=== PATIENT | male | born 1940 | race Hispanic/Latino ===

== ENCOUNTER → 2019-10-02 | Outpatient (CLI) | payer OTHER ==
[~2019-10-02] MED LIST: AMLO10TA7 PO; ATOR40TA71 PO; CARV25TA PO; CEPH500T PO; LEVO500T2 PO; LOSA100T58 PO; OMEGA RED PO; ROSU20TA31 PO
== END | disposition home or self-care (01) ==
LOC: RAH 09:44
PROVIDERS: ATTEND Internal Medicine
DX: M17.0 Bilateral primary osteoarthritis of knee (principal); M79.641 Pain in right hand
CPT/HCPCS: 73130; 73562

== ENCOUNTER 2019-10-10 14:32 | Inpatient (IN) | payer OTHER ==
[~2019-10-10] VITALS: Ht 172.7 cm; Wt 92.6 kg
[2019-10-10] MEDS: SODIUM CHLORIDE 0.9% 1000ML 1,000 ML IV SCH
[~2019-10-10 14:32] MED LIST changes: +AMLO-258 PO; -AMLO10TA7 PO; -CEPH500T PO; -LEVO500T2 PO; -ROSU20TA31 PO
[2019-10-10] MEDS ORDERED: ACETAMINOPHEN EXTRA STRENGTH 500 MG TABLET ONE (15:09)
[2019-10-10 15:36] LABS: BASOPHILS % (AUTO) 0.2 % (0.0-5.0); HEMATOCRIT 37.3 % (42-54); MEAN CORPUSCULAR HEMOGLOBIN 30.7 pg (27.0-33.0); MEAN CORPUSCULAR HGB CONC 34.9 g/dL (32.0-36.0); MEAN CORPUSCULAR VOLUME 88.2 fL (79-99); MONOCYTES % (AUTO) 7.9 % (3.0-13.0); PLATELET COUNT (AUTO) 146 K/uL (130-400); RED BLOOD CELL COUNT(AUTO) 4.23 MIL/uL (4.50-6.20); RED CELL DISTRIBUTION WIDTH 12.6 % (11.0-15.5); WHITE BLOOD COUNT (AUTO) 23.7 K/uL (4.8-10.8)
[2019-10-10 15:42] LABS: INR 1.26 (0.85-1.15); PARTIAL THROMBOPLASTIN TIME 32.7 SEC (26.3-35.5); PROTHROMBIN TIME 13.5 SEC (9.6-11.6)
[2019-10-10 15:43] LABS: CARBON DIOXIDE 26 mmol/L (21-32); CHLORIDE 100 mmol/L (101-111); CREATININE 1.7 mg/dL (0.5-1.5); GLOMERULAR FILTR. RATE CALC 42 mL/min (>60); GLUCOSE,RANDOM 165 mg/dL (70-105); POTASSIUM 3.5 mmol/L (3.5-5.1); SODIUM SERUM 135 mmol/L (136-145); UREA NITROGEN, BLOOD 16 mg/dL (7-18)
[2019-10-10 15:54] LABS: ALANINE AMINOTRANSFERASE 12 U/L (12-78); ALBUMIN 3.5 g/dL (3.5-5.0); ASPARTATE AMINOTRANSFERASE 7 U/L (10-37); BILIRUBIN,TOTAL 0.8 mg/dL (0.2-1.0); CREATINE KINASE, TOTAL 39 U/L (21-232); MYOGLOBIN 118 ng/mL (10-92); TOTAL PROTEIN, SERUM 7.3 g/dL (6.0-8.3); TROPONIN I < 0.04 ng/mL (0.00-0.06)
[2019-10-10] MEDS ORDERED: ZOSYN 3.375GM+NS 50ML 50 ML IV ONE (16:49)
[2019-10-10] MEDS ORDERED: SODIUM CHLORIDE 0.9% 1000ML 2,000 ML IV ONE (16:49)
[2019-10-10] MEDS ORDERED: VANCOMYCIN 1.5 GM in SODIUM CHLORIDE 0.9% 250 ML IV SCH (18:00)
[2019-10-10 18:43] LABS: APPEARANCE,URINE Cloudy (CLEAR); BILIRUBIN,URINE Negative (NEGATIVE); COLOR,URINE Yellow (YELLOW); GLUCOSE, URINE (UA) Negative (NEGATIVE); KETONES,URINE Negative (NEGATIVE); LEUKOCYTE ESTERASE ,URINE Moderate (NEGATIVE); NITRATE,URINE Negative (NEGATIVE); OCCULT BLOOD,URINE Negative (NEGATIVE); PH,URINE 5.5 (5.0-8.0); PROTEIN,URINE POS 2+ mg/dL (NEGATIVE)
[2019-10-10 18:53] LABS: RBC,URINE 0-1 /HPF (0-1)
[2019-10-10 18:54] LABS: BACTERIA,URINE Few /HPF (None Seen); MUCUS,URINE Few LPF (None Seen); SQUAMOUS EPITHELIAL CELL,UR Few /HPF (0-2)
[2019-10-10] MEDS ORDERED: ACETAMINOPHEN 325 MG TAB PO PRN ×2 (20:45)
[2019-10-10] MEDS ORDERED: ONDANSETRON HCL 4 MG/2 ML VIAL IV PRN (20:45)
[2019-10-10] MEDS ORDERED: HYDRALAZINE HCL 20 MG/ML VIAL IV PRN (20:45)
[2019-10-10] MEDS ORDERED: MORPHINE SULFATE 2 MG/ML 1ML SYG IV PRN (20:45)
[2019-10-10] MEDS ORDERED: LACTULOSE 20 GM/30 ML UDCUP PO PRN (20:45)
[2019-10-10] MEDS: ZOSYN 3.375GM+NS 50ML 50 ML IV SCH (21:00)
[2019-10-10 21:02] LABS: HEMOGLOBIN A1C 6.5 % (4.0-6.0)
[2019-10-10 21:55] LABS: CHOLESTEROL 60 mg/dL (<200); HDL CHOLESTEROL 45 mg/dL (29-71); LDL DIRECT 25 mg/dL (0-99); TRIGLYCERIDES 53 mg/dL (30-200)
[2019-10-10 23:17] VITALS: BP 152/75
--- NOTE | 2019-10-11 | NUR ---
Patient a/ox3. denies chest pain or sob. Mild weakness to BLE with ambulation. Patient to use urinal at bedside. Bruise to R eyebrow post syncopal episode. Denies dizziness at this time. will continue to monitor.
[2019-10-11 03:00] VITALS: BP 144/74
[2019-10-11] MEDS: ZOSYN 3.375GM+NS 50ML 50 ML IV SCH ×3 (04:28→20:34)
[2019-10-11 04:33] LABS: BASOPHILS % (AUTO) 0.2 % (0.0-5.0); EOSINOPHILS % (AUTO) 0.1 % (0.0-8.0); HEMATOCRIT 34.4 % (42-54); LYMPHOCYTES % (AUTO) 4.3 % (21.0-51.0); MEAN CORPUSCULAR HGB CONC 34.9 g/dL (32.0-36.0); MEAN CORPUSCULAR VOLUME 88.9 fL (79-99); MONOCYTES % (AUTO) 6.8 % (3.0-13.0); NEUTROPHILS % (AUTO) 87.8 % (40.0-77.0); PLATELET COUNT (AUTO) 130 K/uL (130-400); RED BLOOD CELL COUNT(AUTO) 3.87 MIL/uL (4.50-6.20); RED CELL DISTRIBUTION WIDTH 12.6 % (11.0-15.5); WHITE BLOOD COUNT (AUTO) 21.2 K/uL (4.8-10.8)
[2019-10-11 04:44] LABS: CREATININE 1.4 mg/dL (0.5-1.5); POTASSIUM 3.3 mmol/L (3.5-5.1)
[2019-10-11] MEDS: INSULIN HUMULIN R 100 UNIT/ML 3ML SQ SCH ×3 (05:13→20:34)
--- NOTE | 2019-10-11 05:52 | NUR ---
Informed NET MAKER ERIKA Morillo about patient's K+ level. Per ERIKA start on electrolyte protocol.
[2019-10-11] MEDS ORDERED: POTASSIUM CHLORIDE 20MEQ/100ML 100 ML IV PRN (06:00)
[2019-10-11] MEDS ORDERED: LIDOCAINE HCL-MPF 1% 2ML VIAL IV PRN (06:00)
[2019-10-11] MEDS: POTASSIUM CHLORIDE 10% ELIXIR 20 MEQ/15 ML UDCUP PO PRN ×2 (06:24→15:35)
--- NOTE | 2019-10-11 07:35 | NUR ---
ASSESSMENT ENCOUNTERED PT A&OX3, CALM COOPERATIVE AND DOES NOT APPEAR TO BE IN ANY DISTRESS NOR ANY NEURO DEFICITS PRESENT. PT DENIES PAIN, SOB, NAUSEA. PT DOES HAVE SOME BRUISING OVER RIGHT EYE DUE TO A FALL AT HOME. PT IS ABLE TO TOLERATE FOODS, FLUIDS AND MEDICATION WITH NO THROAT CLEARING OR COUGH. CALL LIGHT WITHIN REACH.
[2019-10-11] MEDS: FAMOTIDINE 20MG TAB 20 MG TAB PO SCH (07:54)
[2019-10-11 08:09] VITALS: BP 116/56
[2019-10-11 11:42] VITALS: BP 120/60
--- NOTE | 2019-10-11 15:23 | NUR ---
cm note met with patient and states resides athome with spouse, independent with adls and self care. no dme. [place] can assist as needed. Addendum: 10/11/19 at 1525 by MICH BUTT CM Amended: Links added.
[2019-10-11] MEDS: SODIUM CHLORIDE 0.9% 1000ML 1,000 ML IV SCH (15:27)
[2019-10-11] MEDS: POTASSIUM CHLORIDE 20 MEQ ERTAB PO PRN (15:34)
[2019-10-11 16:00] VITALS: BP 124/69
[2019-10-11 19:15] VITALS: BP 122/66
[2019-10-11 23:18] VITALS: BP 133/75
[2019-10-12] MEDS: SODIUM CHLORIDE 0.9% 1000ML 1,000 ML IV SCH ×2 (01:02→12:31)
[2019-10-12 03:29] VITALS: BP 128/67
[2019-10-12] MEDS: ZOSYN 3.375GM+NS 50ML 50 ML IV SCH ×3 (05:24→20:51)
[2019-10-12 05:27] LABS: BASOPHILS % (AUTO) 0.3 % (0.0-5.0); EOSINOPHILS % (AUTO) 0.5 % (0.0-8.0); HEMATOCRIT 34.2 % (42-54); LYMPHOCYTES % (AUTO) 7.5 % (21.0-51.0); MEAN CORPUSCULAR HEMOGLOBIN 30.2 pg (27.0-33.0); MEAN CORPUSCULAR HGB CONC 34.2 g/dL (32.0-36.0); MEAN CORPUSCULAR VOLUME 88.1 fL (79-99); MONOCYTES % (AUTO) 5.8 % (3.0-13.0); NEUTROPHILS % (AUTO) 84.4 % (40.0-77.0); PLATELET COUNT (AUTO) 135 K/uL (130-400); RED BLOOD CELL COUNT(AUTO) 3.88 MIL/uL (4.50-6.20); RED CELL DISTRIBUTION WIDTH 12.7 % (11.0-15.5); WHITE BLOOD COUNT (AUTO) 19.2 K/uL (4.8-10.8)
[2019-10-12 05:42] LABS: CREATININE 1.3 mg/dL (0.5-1.5); POTASSIUM 3.5 mmol/L (3.5-5.1)
[2019-10-12] MEDS: INSULIN HUMULIN R 100 UNIT/ML 3ML SQ SCH ×4 (06:17→20:51)
[2019-10-12] MEDS: POTASSIUM CHLORIDE 10% ELIXIR 20 MEQ/15 ML UDCUP PO PRN ×2 (06:19→09:00)
[2019-10-12 08:00] VITALS: BP 151/79
[2019-10-12] MEDS: FAMOTIDINE 20MG TAB 20 MG TAB PO SCH (08:37)
[2019-10-12 12:00] VITALS: BP 149/84
[2019-10-12] MEDS ORDERED: AMLODIPINE BESYLATE 5 MG TAB PO SCH (12:15)
[2019-10-12] MEDS: LOSARTAN 100 MG TABLET PO SCH (12:30)
[2019-10-12] MEDS ORDERED: ROSU20TA31 PO (13:23)
[2019-10-12] MEDS ORDERED: CARV25TA PO (13:23)
[2019-10-12 16:00] VITALS: BP 137/68
[2019-10-12 18:51] VITALS: BP 139/81
--- NOTE | 2019-10-12 19:30 | NUR ---
Patient Refusing CTA until he speaks to . system technologist, House sup and hospitalist DRYERMAN/WOMAN informed.
[2019-10-12] MEDS: ATORVASTATIN CALCIUM 40 MG TABLET PO SCH (20:51)
[2019-10-12 23:38] VITALS: BP 136/81
[2019-10-13 03:32] VITALS: BP 129/72
[2019-10-13] MEDS: SODIUM CHLORIDE 0.9% 1000ML 1,000 ML IV SCH ×2 (04:08→07:38)
[2019-10-13] MEDS: ZOSYN 3.375GM+NS 50ML 50 ML IV SCH ×3 (04:08→19:57)
[2019-10-13 05:19] LABS: BASOPHILS % (AUTO) 0.2 % (0.0-5.0); EOSINOPHILS % (AUTO) 2.4 % (0.0-8.0); HEMATOCRIT 35.8 % (42-54); LYMPHOCYTES % (AUTO) 10.7 % (21.0-51.0); MEAN CORPUSCULAR HEMOGLOBIN 30.9 pg (27.0-33.0); MEAN CORPUSCULAR HGB CONC 35.2 g/dL (32.0-36.0); MEAN CORPUSCULAR VOLUME 87.7 fL (79-99); PLATELET COUNT (AUTO) 155 K/uL (130-400); RED BLOOD CELL COUNT(AUTO) 4.08 MIL/uL (4.50-6.20); RED CELL DISTRIBUTION WIDTH 12.4 % (11.0-15.5); WHITE BLOOD COUNT (AUTO) 13.1 K/uL (4.8-10.8)
[2019-10-13 05:42] LABS: ALBUMIN 2.8 g/dL (3.5-5.0); BILIRUBIN,TOTAL 0.4 mg/dL (0.2-1.0); CREATININE 1.3 mg/dL (0.5-1.5); POTASSIUM 3.6 mmol/L (3.5-5.1); TOTAL PROTEIN, SERUM 6.9 g/dL (6.0-8.3)
[2019-10-13] MEDS: POTASSIUM CHLORIDE 20 MEQ ERTAB PO PRN (05:48)
[2019-10-13] MEDS: INSULIN HUMULIN R 100 UNIT/ML 3ML SQ SCH ×4 (06:09→20:09)
[2019-10-13] MEDS: OMEGA RED PO SCH (07:38)
[2019-10-13] MEDS: FAMOTIDINE 20MG TAB 20 MG TAB PO SCH (07:38)
[2019-10-13] MEDS: LOSARTAN 100 MG TABLET PO SCH ×2 (07:38→12:01)
[2019-10-13] MEDS: AMLODIPINE BESYLATE 5 MG TAB PO SCH (07:38)
--- NOTE | 2019-10-13 07:55 | NUR ---
ASSESSMENT PT IS AAOX3 DENIES CP DENIES SOB DENIES NV RESTING IN BED. CALL LIGHT WITHIN REACH.
[2019-10-13 08:00] VITALS: BP 143/80
[2019-10-13] MEDS ORDERED: NON-FORMULARY MEDICATION 1 EACH (Amlodipine Besylate 10 MG) PO SCH (09:00)
[2019-10-13 11:28] VITALS: BP 134/77
[2019-10-13] MEDS ORDERED: CEPH500T PO (15:38)
[2019-10-13 16:00] VITALS: BP 144/87
[2019-10-13 19:05] VITALS: BP 146/96
[2019-10-13] MEDS ORDERED: IOHEXOL-350 75 ML VIAL IV ONE (19:37)
[2019-10-13] MEDS: ATORVASTATIN CALCIUM 40 MG TABLET PO SCH (19:57)
--- NOTE | 2019-10-13 21:00 | NUR ---
PT WAS TAKEN FOR CT ANGIO OF NECK EARLIER. NO COMPLAINTS. PT STATES HE NOT HAVING ANY SYNCOPE EPISODES AT THIS TIME.IS ABLE TO STAND UP AND AMBULATE TO CHAIR.
[2019-10-13 23:09] VITALS: BP 153/79
[2019-10-14 03:50] VITALS: BP 137/90
[2019-10-14 05:09] LABS: BASOPHILS % (AUTO) 0.5 % (0.0-5.0); EOSINOPHILS % (AUTO) 3.7 % (0.0-8.0); HEMATOCRIT 37.3 % (42-54); LYMPHOCYTES % (AUTO) 14.7 % (21.0-51.0); MEAN CORPUSCULAR HEMOGLOBIN 30.1 pg (27.0-33.0); MEAN CORPUSCULAR HGB CONC 34.3 g/dL (32.0-36.0); MEAN CORPUSCULAR VOLUME 87.8 fL (79-99); MONOCYTES % (AUTO) 8.9 % (3.0-13.0); NEUTROPHILS % (AUTO) 71.2 % (40.0-77.0); PLATELET COUNT (AUTO) 168 K/uL (130-400); RED BLOOD CELL COUNT(AUTO) 4.25 MIL/uL (4.50-6.20); RED CELL DISTRIBUTION WIDTH 12.8 % (11.0-15.5); WHITE BLOOD COUNT (AUTO) 9.9 K/uL (4.8-10.8)
[2019-10-14] MEDS: ZOSYN 3.375GM+NS 50ML 50 ML IV SCH (05:13)
[2019-10-14 05:22] LABS: CREATININE 1.3 mg/dL (0.5-1.5); MAGNESIUM 1.8 mg/dL (1.80-2.40); PHOSPHORUS 3.4 mg/dL (2.5-4.9); POTASSIUM 3.6 mmol/L (3.5-5.1)
[2019-10-14] MEDS: INSULIN HUMULIN R 100 UNIT/ML 3ML SQ SCH ×2 (05:34→10:53)
[2019-10-14] MEDS: POTASSIUM CHLORIDE 20 MEQ ERTAB PO PRN (05:50)
[2019-10-14] MEDS: OMEGA RED PO SCH (07:37)
[2019-10-14] MEDS: AMLODIPINE BESYLATE 5 MG TAB PO SCH (07:37)
[2019-10-14] MEDS: LOSARTAN 100 MG TABLET PO SCH (07:37)
[2019-10-14] MEDS: FAMOTIDINE 20MG TAB 20 MG TAB PO SCH (07:37)
[2019-10-14 08:00] VITALS: BP 144/80
--- NOTE | 2019-10-14 08:30 | NUR ---
ASSESSMENT PT IS AAOX3 DENIES CP DENIES SOB DENIES NV NO COMPLAINTS RESTING IN BED. CALL LIGHT WITHIN REACH. EEG COMPLETED AT BEDSIDE.
[2019-10-14 11:18] VITALS: BP 136/82
[2019-10-14] MEDS ORDERED: LEVO500T2 PO (11:28)
--- NOTE | 2019-10-14 13:18 | NUR ---
DISCHARGE PATIENT AND FAMILY MEMBER VERBALIZE DC INSTRUCTIONS UNDERSTANDING AGREE TO TAKE MEDS ORDERED. ALL QUESTIONS ANSWERED. PIV REMOVED CATH TIP INTACT, TELE PACK REMOVED. ALL BELONGINGS GATHERED. AWAITING DC RIDE.
[2019-10-15] MEDS ORDERED: LEVOFLOXACIN 500 MG TABLET PO SCH (09:00)
== END 2019-10-14 13:40 | disposition home or self-care (01) | DRG 872 ==
LOC: EDH 14:32 → EDHIP 20:37 → 4DH 23:20
PROVIDERS: ADMIT Hospitalist; ATTEND Hospitalist
DX: A41.9 Sepsis, unspecified organism (principal); N30.00 Acute cystitis without hematuria; E87.6 Hypokalemia; G93.89 Other specified disorders of brain; I10 Essential (primary) hypertension; I25.10 Atherosclerotic heart disease of native coronary artery without angina pectoris; I34.0 Nonrheumatic mitral (valve) insufficiency; K44.9 Diaphragmatic hernia without obstruction or gangrene; K57.90 Diverticulosis of intestine, part unspecified, without perforation or abscess without bleeding; M47.815 Spondylosis without myelopathy or radiculopathy, thoracolumbar region; N28.1 Cyst of kidney, acquired; S00.11XA Contusion of right eyelid and periocular area, initial encounter; W18.30XA Fall on same level, unspecified, initial encounter; Z82.0 Family history of epilepsy and other diseases of the nervous system; Z82.3 Family history of stroke; Z82.49 Family history of ischemic heart disease and other diseases of the circulatory system; Z82.5 Family history of asthma and other chronic lower respiratory diseases; Z83.3 Family history of diabetes mellitus; Z95.1 Presence of aortocoronary bypass graft; Z80.0 Family history of malignant neoplasm of digestive organs; Y93.89 Activity, other specified; Y92.009 Unspecified place in unspecified non-institutional (private) residence as the place of occurrence of the external cause; Y99.8 Other external cause status; Z03.818 Encounter for observation for suspected exposure to other biological agents ruled out
CPT/HCPCS: 36415; 70450; 70498; 71045; 74176; 78582; 80048; 80053; 80061; 81001; 82550; 82948; 83036; 83605; 83735; 83874; 84100; 84145; 84484; 85025; 85378; 85610; 85730; 86140; 87040; 87088; 87635; 93005; 93306; 93356; 93880; 95816; A9540; A9558; G0378; J1815; J2543; J3370; J7030; J7050; Q9967

== ENCOUNTER → 2020-11-19 | Outpatient (CLI) | payer OTHER ==
[~2020-11-19] MED LIST changes: +CEPH500T PO; +LEVO500T2 PO; +ROSU20TA31 PO
== END | disposition home or self-care (01) ==
LOC: RAH 09:40
PROVIDERS: ATTEND Internal Medicine
DX: M17.0 Bilateral primary osteoarthritis of knee (principal)
CPT/HCPCS: 73562

== ENCOUNTER 2021-04-24 09:08 | Inpatient (IN) | payer OTHER ==
[~2021-04-24] VITALS: Ht 172.7 cm; Wt 95.3 kg
[2021-04-24] MEDS ORDERED: MORPHINE 2 MG SYG IVP ONE (10:00)
[2021-04-24] MEDS ORDERED: 0.9%NACL 1000ML 1,000 ML IV ONE (10:00)
[2021-04-24] MEDS ORDERED: CLINDAMYCIN IVPB 900MG/50ML 50 ML IV ONE (10:00)
[2021-04-24] MEDS ORDERED: ONDANSETRON 4MG INJ IVP ONE (10:00)
[2021-04-24 10:18] LABS: ALBUMIN 3.8 g/dL (3.5-5.0); BILIRUBIN,TOTAL 0.6 mg/dL (0.2-1.0); CREATININE 1.2 mg/dL (0.5-1.5); CRP QUANTITATIVE 89.2 mg/L (0.00-9.0); POTASSIUM 4.3 mmol/L (3.5-5.1); TOTAL PROTEIN, SERUM 8.3 g/dL (6.0-8.3)
[2021-04-24 10:22] LABS: BASOPHILS % (AUTO) 0.4 % (0.0-5.0); EOSINOPHILS % (AUTO) 0.9 % (0.0-8.0); HEMATOCRIT 42.5 % (42-54); LYMPHOCYTES % (AUTO) 13.9 % (21.0-51.0); MEAN CORPUSCULAR HGB CONC 34.1 g/dL (32.0-36.0); MONOCYTES % (AUTO) 12.3 % (3.0-13.0); NEUTROPHILS % (AUTO) 72.1 % (40.0-77.0); PLATELET COUNT (AUTO) 141 K/uL (130-400); RED BLOOD CELL COUNT(AUTO) 4.83 MIL/uL (4.50-6.20); RED CELL DISTRIBUTION WIDTH 13.2 % (11.0-15.5); WHITE BLOOD COUNT (AUTO) 9.9 K/uL (4.8-10.8)
[2021-04-24 11:29] LABS: ERYTHROCYTE SEDIMENTATION RATE 21 MM/HR (0-20)
[2021-04-24 11:59] LABS: APPEARANCE,URINE Clear (CLEAR); BILIRUBIN,URINE Negative (NEGATIVE); COLOR,URINE Yellow (YELLOW); GLUCOSE, URINE (UA) >=1000 mg/dL (NEGATIVE); KETONES,URINE Negative (NEGATIVE); LEUKOCYTE ESTERASE ,URINE Negative (NEGATIVE); NITRATE,URINE Negative (NEGATIVE); OCCULT BLOOD,URINE Negative (NEGATIVE); PH,URINE 6.5 (5.0-8.0); PROTEIN,URINE POS 1+ mg/dL (NEGATIVE); UROBILINOGEN,URINE 0.2 mg/dL (0.2-1.0)
[2021-04-24 12:14] LABS: BACTERIA,URINE Rare /HPF (None Seen); RBC,URINE None Seen /HPF (0-1); SQUAMOUS EPITHELIAL CELL,UR Rare /HPF (0-2); WBC,URINE None Seen /HPF (0-1)
[2021-04-24] MEDS ORDERED: ACETAMINOPHEN 325 MG TAB PO PRN ×2 (13:30)
[2021-04-24] MEDS ORDERED: HYDRALAZINE 20MG/ML VIAL IV PRN (13:30)
[2021-04-24] MEDS ORDERED: ONDANSETRON 4MG INJ IV PRN (13:30)
[2021-04-24] MEDS ORDERED: DAPA5TAB PO (13:51)
[2021-04-24] MEDS: CLINDAMYCIN IVPB 600MG/50ML 50 ML IV SCH ×2 (14:00→22:07)
[2021-04-24] MEDS ORDERED: VANCOMYCIN PROTOCOL PER PHARMACY IV SCH (14:00)
[2021-04-24 14:11] LABS: HEMOGLOBIN A1C 6.4 % (4.0-6.0)
[2021-04-24] MEDS ORDERED: COMPOUND IV REFRIGERATED 1 EACH IVSOLN MISC PRN (14:30)
[2021-04-24] MEDS: MEROPENEM 1 GM VIAL IVP SCH ×2 (14:52→22:07)
[2021-04-24] MEDS: 0.9%NACL 1000ML 1,000 ML IV SCH (14:52)
[2021-04-24] MEDS: INSULIN HUMULIN R 100 UNIT/ML 3ML SQ SCH ×2 (16:45→20:01)
[2021-04-24 17:20] VITALS: BP 159/92
[2021-04-24] MEDS: FAMOTIDINE 20MG VIAL IV SCH (19:55)
[2021-04-24] MEDS: VANCOMYCIN 1.25GM/NS 250ML IVPB SCH ×2 (19:55)
[2021-04-24] MEDS: LOSARTAN 50 MG TABLET PO SCH (19:55)
[2021-04-24] MEDS: ACETAMINOPHEN WITH CODEINE 1 TAB TAB PO PRN (19:56)
[2021-04-24 20:00] VITALS: BP 129/72
[2021-04-24] MEDS ORDERED: CARV25TA PO (20:07)
[2021-04-25] VITALS (26 sets, daily range): BP systolic 110–155; BP diastolic 54–92
[2021-04-25] MEDS: ACETAMINOPHEN WITH CODEINE 1 TAB TAB PO PRN (02:48)
[2021-04-25 03:59] LABS: HEMATOCRIT 38.2 % (42-54); MEAN CORPUSCULAR HEMOGLOBIN 29.9 pg (27.0-33.0); MEAN CORPUSCULAR HGB CONC 34.6 g/dL (32.0-36.0); MEAN CORPUSCULAR VOLUME 86.4 fL (79-99); RED BLOOD CELL COUNT(AUTO) 4.42 MIL/uL (4.50-6.20); RED CELL DISTRIBUTION WIDTH 13.3 % (11.0-15.5); WHITE BLOOD COUNT (AUTO) 9.5 K/uL (4.8-10.8)
[2021-04-25] MEDS: 0.9%NACL 1000ML 1,000 ML IV SCH ×2 (04:30→19:54)
[2021-04-25 05:02] LABS: CREATININE 1.3 mg/dL (0.5-1.5)
[2021-04-25] MEDS: CLINDAMYCIN IVPB 600MG/50ML 50 ML IV SCH ×2 (05:39→15:45)
[2021-04-25] MEDS: MEROPENEM 1 GM VIAL IVP SCH ×2 (05:39→15:45)
[2021-04-25] MEDS: VANCOMYCIN 1.25GM/NS 250ML IVPB SCH ×4 (05:39→17:42)
[2021-04-25] MEDS: INSULIN HUMULIN R 100 UNIT/ML 3ML SQ SCH ×4 (06:42→20:50)
[2021-04-25] MEDS ORDERED: HYDROMORPHONE 0.5 MG SYG (0.5MG/0.5ML) IVP PRN (07:30)
[2021-04-25] MEDS: LOSARTAN 50 MG TABLET PO SCH ×2 (08:06→22:18)
[2021-04-25] MEDS: FAMOTIDINE 20MG VIAL IV SCH ×2 (08:06→22:18)
[2021-04-25] MEDS: AMLODIPINE 5 MG TAB PO SCH (08:07)
[2021-04-25] MEDS: ENOXAPARIN SODIUM 40 MG/0.4 ML SYRINGE SQ SCH (08:07)
[2021-04-25] MEDS ORDERED: KETAMINE 50MG/ML SYRINGE 50 MG/ML DISP.SYRIN IV ONE (19:42)
[2021-04-25] MEDS ORDERED: PROPOFOL 1000 MG/100 ML 100 ML IV ONE (19:42)
[2021-04-25] MEDS ORDERED: ROPIVACAINE 0.5% 5MG/ML 30ML IJ ONE (19:43)
[2021-04-25] MEDS ORDERED: SUCCINYLCHOLINE CHLORIDE 20 MG/ML 10 ML VIAL ONE (19:44)
[2021-04-25] MEDS ORDERED: LIDOCAINE PF 100MG/5ML (2%) SYRINGE 5ML ONE (19:44)
[2021-04-25] MEDS ORDERED: FENTANYL CITRATE PF 50 MCG/1 ML 2ML VIAL ONE (19:45)
[2021-04-25] MEDS ORDERED: MIDAZOLAM HCL 1 MG/ML 2ML VIAL ONE (19:45)
[2021-04-25] MEDS ORDERED: PROPOFOL 10 MG/ML 20ML VIAL IV ONE ×2 (19:45→20:03)
[2021-04-25] MEDS ORDERED: EPHEDRINE SULFATE 50 MG/ML AMPULE ONE (20:11)
[2021-04-25] MEDS: [UNRECOGNIZED DRUG - OTHER] IV SCH (23:38)
[2021-04-25] MEDS: UNASYN IV SCH (23:38)
[2021-04-26] VITALS (9 sets, daily range): BP systolic 116–151; BP diastolic 68–85
[2021-04-26] MEDS ORDERED: UNASYN 3GM VIAL IV SCH
[2021-04-26 05:02] LABS: MEAN CORPUSCULAR HEMOGLOBIN 29.6 pg (27.0-33.0); MEAN CORPUSCULAR HGB CONC 33.2 g/dL (32.0-36.0); MEAN CORPUSCULAR VOLUME 89.1 fL (79-99); RED BLOOD CELL COUNT(AUTO) 4.6 MIL/uL (4.50-6.20); RED CELL DISTRIBUTION WIDTH 12.9 % (11.0-15.5); WHITE BLOOD COUNT (AUTO) 9.8 K/uL (4.8-10.8)
[2021-04-26] MEDS: UNASYN IV SCH ×3 (05:12→18:38)
[2021-04-26] MEDS: [UNRECOGNIZED DRUG - OTHER] IV SCH ×3 (05:12→18:38)
[2021-04-26 05:15] LABS: CREATININE 1.2 mg/dL (0.5-1.5)
[2021-04-26] MEDS: INSULIN HUMULIN R 100 UNIT/ML 3ML SQ SCH ×4 (06:01→20:51)
[2021-04-26] MEDS: VANCOMYCIN 1.25GM/NS 250ML IVPB SCH ×2 (06:02)
[2021-04-26] MEDS: FAMOTIDINE 20MG VIAL IV SCH ×2 (09:18→20:54)
[2021-04-26] MEDS: LOSARTAN 50 MG TABLET PO SCH ×2 (09:18→20:53)
[2021-04-26] MEDS: ENOXAPARIN SODIUM 40 MG/0.4 ML SYRINGE SQ SCH (09:18)
[2021-04-26] MEDS: AMLODIPINE 5 MG TAB PO SCH (09:18)
[2021-04-26] MEDS: 0.9%NACL 1000ML 1,000 ML IV SCH (11:18)
[2021-04-26] MEDS: ACETAMINOPHEN WITH CODEINE 1 TAB TAB PO PRN (12:03)
[2021-04-26] MEDS: VANCOMYCIN 1G/250ML KIT 250 ML IV SCH (21:05)
[2021-04-27 00:12] VITALS: BP 123/59
[2021-04-27] MEDS: [UNRECOGNIZED DRUG - OTHER] IV SCH ×4 (00:15→17:11)
[2021-04-27] MEDS: UNASYN IV SCH ×4 (00:15→17:11)
[2021-04-27] MEDS: 0.9%NACL 1000ML 1,000 ML IV SCH ×2 (02:42→16:27)
[2021-04-27 03:47] LABS: HEMATOCRIT 38.9 % (42-54); MEAN CORPUSCULAR HEMOGLOBIN 29.5 pg (27.0-33.0); MEAN CORPUSCULAR HGB CONC 33.2 g/dL (32.0-36.0); RED BLOOD CELL COUNT(AUTO) 4.37 MIL/uL (4.50-6.20); RED CELL DISTRIBUTION WIDTH 12.8 % (11.0-15.5); WHITE BLOOD COUNT (AUTO) 10.8 K/uL (4.8-10.8)
[2021-04-27 04:09] LABS: ALBUMIN 2.8 g/dL (3.5-5.0); BILIRUBIN,TOTAL 0.5 mg/dL (0.2-1.0); CREATININE 1.2 mg/dL (0.5-1.5); CRP QUANTITATIVE 115.1 mg/L (0.00-9.0); POTASSIUM 3.8 mmol/L (3.5-5.1); TOTAL PROTEIN, SERUM 6.7 g/dL (6.0-8.3); URIC ACID 3.5 mg/dL (2.6-7.2)
[2021-04-27 04:12] VITALS: BP 145/82
[2021-04-27] MEDS: VANCOMYCIN 1G/250ML KIT 250 ML IV SCH ×2 (06:00→17:12)
[2021-04-27] MEDS: INSULIN HUMULIN R 100 UNIT/ML 3ML SQ SCH ×4 (06:33→21:00)
[2021-04-27 08:00] VITALS: BP 134/91
[2021-04-27] MEDS: FAMOTIDINE 20MG VIAL IV SCH ×2 (09:44→21:28)
[2021-04-27] MEDS: AMLODIPINE 5 MG TAB PO SCH (09:44)
[2021-04-27] MEDS: LOSARTAN 50 MG TABLET PO SCH ×2 (09:44→21:28)
[2021-04-27] MEDS: ENOXAPARIN SODIUM 40 MG/0.4 ML SYRINGE SQ SCH (09:44)
[2021-04-27 12:00] VITALS: BP 158/93
[2021-04-27 16:00] VITALS: BP 141/85
[2021-04-27 20:46] VITALS: BP 125/72
[2021-04-28 00:05] VITALS: BP 143/80
[2021-04-28 03:47] VITALS: BP 130/71
[2021-04-28] MEDS: VANCOMYCIN 1G/250ML KIT 250 ML IV SCH ×3 (04:03→17:13)
[2021-04-28] MEDS: [UNRECOGNIZED DRUG - OTHER] IV SCH ×4 (06:06→17:12)
[2021-04-28] MEDS: UNASYN IV SCH ×4 (06:06→17:12)
[2021-04-28] MEDS: INSULIN HUMULIN R 100 UNIT/ML 3ML SQ SCH ×3 (06:07→16:30)
[2021-04-28 08:00] VITALS: BP 142/82
[2021-04-28] MEDS ORDERED: MAGNESIUM 2GM PREMIX 50ML 50 ML IV SCH (09:30)
[2021-04-28] MEDS: 0.9%NACL 1000ML 1,000 ML IV SCH (09:30)
[2021-04-28] MEDS: FAMOTIDINE 20MG VIAL IV SCH (10:17)
[2021-04-28] MEDS: LOSARTAN 50 MG TABLET PO SCH (10:17)
[2021-04-28] MEDS: AMLODIPINE 5 MG TAB PO SCH (10:17)
[2021-04-28] MEDS: ENOXAPARIN SODIUM 40 MG/0.4 ML SYRINGE SQ SCH (10:18)
[2021-04-28 12:36] VITALS: BP 149/81
[2021-04-28 16:25] VITALS: BP 137/77
[2021-04-28] MEDS ORDERED: AMLO5TAB4 PO (17:29)
[2021-04-28] MEDS ORDERED: DOXY100C5 PO (17:29)
[2021-04-28] MEDS ORDERED: AMOX-429 PO (17:29)
[2021-04-28] MEDS ORDERED: CARV25TA PO (17:41)
== END 2021-04-28 20:13 | disposition home or self-care (01) | DRG 506 ==
LOC: EDH 09:08 → EDHIP 13:12 → 4CH 17:21
PROVIDERS: ADMIT Internal Medicine; ATTEND Internal Medicine
PROC: 3E1U38Z Irrigation of Joints using Irrigating Substance, Percutaneous Approach (ICD-10-PCS; 2021-04-25)
PROC: 0R9N0ZZ Drainage of Right Wrist Joint, Open Approach (ICD-10-PCS; 2021-04-25)
PROC: 0R9 Upper Joints, Drainage (ICD-10-PCS; principal; 2021-04-25 20:02)
DX: M00.9 Pyogenic arthritis, unspecified (principal); L03.113 Cellulitis of right upper limb; L02.413 Cutaneous abscess of right upper limb; I50.42 Chronic combined systolic (congestive) and diastolic (congestive) heart failure; E11.51 Type 2 diabetes mellitus with diabetic peripheral angiopathy without gangrene; E78.5 Hyperlipidemia, unspecified; M65.9 Synovitis and tenosynovitis, unspecified; I11.0 Hypertensive heart disease with heart failure; E78.00 Pure hypercholesterolemia, unspecified; Z20.822 Contact with and (suspected) exposure to COVID-19; I25.10 Atherosclerotic heart disease of native coronary artery without angina pectoris; E66.9 Obesity, unspecified; Z68.31 Body mass index [BMI] 31.0-31.9, adult; W54.0XXA Bitten by dog, initial encounter; Y93.89 Activity, other specified; Y92.89 Other specified places as the place of occurrence of the external cause; Y99.8 Other external cause status; Z87.440 Personal history of urinary (tract) infections; Z79.82 Long term (current) use of aspirin; Z95.1 Presence of aortocoronary bypass graft; Z79.899 Other long term (current) drug therapy; Z83.3 Family history of diabetes mellitus; Z82.5 Family history of asthma and other chronic lower respiratory diseases; Z82.49 Family history of ischemic heart disease and other diseases of the circulatory system; Z82.3 Family history of stroke; Z82.0 Family history of epilepsy and other diseases of the nervous system; Z80.0 Family history of malignant neoplasm of digestive organs
CPT/HCPCS: 36415; 36600; 73090; 73200; 73218; 80048; 80053; 80202; 81001; 82010; 82550; 82948; 83036; 83605; 84145; 84484; 84550; 85025; 85027; 85651; 86140; 87040; 87070; 87076; 87077; 87088; 87186; 87205; 87635; 93971; A4565; G0378; J0295; J0330; J1170; J1650; J1815; J2001; J2185; J2250; J2405; J2704; J2795; J3010; J3370; J3475; J3490; J7030; J7050

== ENCOUNTER → 2022-09-06 | Outpatient (CLI) | payer OTHER ==
[~2022-09-06] MED LIST changes: -AMLO-258 PO; +AMLO5TAB4 PO; +AMOX-429 PO; -ATOR40TA71 PO; -CEPH500T PO; +DAPA5TAB PO; +DOXY100C5 PO; -LEVO500T2 PO; -LOSA100T58 PO; +LOSA100T59 PO; -OMEGA RED PO
[2022-09-06 10:52] LABS: BASOPHILS % (AUTO) 0.5 % (0.0-5.0); HEMATOCRIT 41.1 % (42-54); LYMPHOCYTES % (AUTO) 18.5 % (21.0-51.0); MEAN CORPUSCULAR HEMOGLOBIN 29.8 pg (27.0-33.0); MEAN CORPUSCULAR HGB CONC 33.8 g/dL (32.0-36.0); MEAN CORPUSCULAR VOLUME 88.2 fL (79-99); MONOCYTES % (AUTO) 9.1 % (3.0-13.0); NEUTROPHILS % (AUTO) 66.5 % (40.0-77.0); PLATELET COUNT (AUTO) 148 K/uL (130-400); RED BLOOD CELL COUNT(AUTO) 4.66 MIL/uL (4.50-6.20); RED CELL DISTRIBUTION WIDTH 13.2 % (11.0-15.5); WHITE BLOOD COUNT (AUTO) 9.2 K/uL (4.8-10.8)
[2022-09-06 10:54] LABS: INR 1.05 (0.85-1.15); PROTHROMBIN TIME 11.4 SEC (9.6-11.6)
[2022-09-06 10:55] LABS: PARTIAL THROMBOPLASTIN TIME 31.6 SEC (26.3-35.5)
[2022-09-06 10:56] LABS: HEMOGLOBIN A1C 7.7 % (4.0-6.0)
[2022-09-06 10:57] LABS: ALBUMIN 4.1 g/dL (3.5-5.0); CREATININE 1.4 mg/dL (0.5-1.5); POTASSIUM 4.2 mmol/L (3.5-5.1); TOTAL PROTEIN, SERUM 7.9 g/dL (6.0-8.3)
== END | disposition home or self-care (01) ==
LOC: RAH 09:53
PROVIDERS: ATTEND Internal Medicine
DX: Z01.818 Encounter for other preprocedural examination (principal); E11.59 Type 2 diabetes mellitus with other circulatory complications; E78.2 Mixed hyperlipidemia; E11.51 Type 2 diabetes mellitus with diabetic peripheral angiopathy without gangrene; I11.0 Hypertensive heart disease with heart failure; I05.9 Rheumatic mitral valve disease, unspecified
CPT/HCPCS: 36415; 71046; 80053; 80061; 83036; 85025; 85610; 85730

== ENCOUNTER → 2023-05-04 | Outpatient (CLI) | payer OTHER ==
[~2023-05-04] MED LIST changes: -ROSU20TA31 PO; +ROSU20TA73 PO
[2023-05-04 13:02] LABS: BILIRUBIN,TOTAL 0.4 mg/dL (0.2-1.0); CREATININE 1.3 mg/dL (0.5-1.5); POTASSIUM 3.8 mmol/L (3.5-5.1); TOTAL PROTEIN, SERUM 7.9 g/dL (6.0-8.3)
== END | disposition home or self-care (01) ==
LOC: LAB 09:30
PROVIDERS: ATTEND Internal Medicine Cardiovascular Disease
DX: I25.810 Atherosclerosis of coronary artery bypass graft(s) without angina pectoris (principal)
CPT/HCPCS: 36415; 80053; 80061

== ENCOUNTER → 2023-10-29 | Outpatient (CLI) | payer OTHER ==
[2023-10-29 12:12] LABS: BASOPHILS # (AUTO) 0.04 K/uL (0.00-0.20); BASOPHILS % (AUTO) 0.5 % (0.0-5.0); EOSINOPHILS # (AUTO) 0.55 K/uL (0.00-0.70); EOSINOPHILS % (AUTO) 6.8 % (0.0-8.0); HEMATOCRIT 42.8 % (42-54); IMMATURE GRANULOCYTE ABSOLUTE 0.03 K/uL (0-1); LYMPHOCYTES # (AUTO) 1.6 K/uL (1.0-4.8); LYMPHOCYTES % (AUTO) 19.3 % (21.0-51.0); MEAN CORPUSCULAR HEMOGLOBIN 29.9 pg (27.0-33.0); MEAN CORPUSCULAR HGB CONC 34.1 g/dL (32.0-36.0); MEAN CORPUSCULAR VOLUME 87.7 fL (79-99); MONOCYTES # (AUTO) 0.8 K/uL (0.1-1.0); MONOCYTES % (AUTO) 9.3 % (3.0-13.0); NEUTROPHILS # (AUTO) 5.1 K/uL (1.8-7.7); NEUTROPHILS % (AUTO) 63.7 % (40.0-77.0); PLATELET COUNT (AUTO) 143 K/uL (130-400); RED BLOOD CELL COUNT(AUTO) 4.88 MIL/uL (4.50-6.20); RED CELL DISTRIBUTION WIDTH 13.3 % (11.0-15.5)
[2023-10-29 12:24] LABS: ALBUMIN 3.9 g/dL (3.5-5.0); BILIRUBIN,TOTAL 0.4 mg/dL (0.2-1.0); CREATININE 1.3 mg/dL (0.5-1.3); POTASSIUM 4.3 mmol/L (3.5-5.1); TOTAL PROTEIN, SERUM 7.8 g/dL (6.0-8.3)
== END | disposition home or self-care (01) ==
LOC: LAB 09:45
PROVIDERS: ATTEND Internal Medicine Cardiovascular Disease
DX: E78.5 Hyperlipidemia, unspecified (principal)
CPT/HCPCS: 36415; 80053; 80061; 85025